=== PATIENT | female | born 1975 | race Asian ===

== ENCOUNTER 2019-10-20 11:46 | Outpatient (CLI) | payer OTHER, SELFPAY ==
--- NOTE | 2019-10-20 11:55 | US_ITS ---
WS: [id number] PELVIC ULTRASOUND REASON FOR VISIT: MENORRHAGIA TECHNIQUE: Grayscale and Doppler transabdominal and transvaginal pelvic ultrasound. FINDINGS: A thickened endometrium measure 1.35 cm. Uterus measures 4.86 cm x 5.8 cm x 3.7 cm, right ovary measures 3.0 cm x 2.9 cm x 1.5 cm, and left ov jhonny measures 3.4 cm x 2.9 cm x 1.8 cm. The left ovary shows numerous prominent follicles. Normal blood flow is seen. A cyst is noted on the left measures 1.36 cm. The right ovary shows a cyst measures 0.83 cm. US/US pelvic with transvaginal IMPRESSION: Thickened endometrium suggests hyperplasia. Small functional cyst both ovaries.
== END 2019-10-20 11:47 | disposition home or self-care (01) ==
LOC: RAD 11:47
PROVIDERS: PCP Family Medicine; Visit Provider Family Medicine
DX: N92.0 Excessive and frequent menstruation with regular cycle (principal); N83.202 Unspecified ovarian cyst, left side; N83.201 Unspecified ovarian cyst, right side
CPT/HCPCS: 76830; 76856

== ENCOUNTER → 2019-11-17 09:58 | Outpatient (BNVA) | payer OTHER, SELFPAY | PROVIDERS: PCP Family Medicine; Visit Provider Nurse Practitioner Women's Health | DX: N93.9 Abnormal uterine and vaginal bleeding, unspecified (principal) | CPT/HCPCS: 88305 ==

== ENCOUNTER → 2021-06-20 11:42 | Outpatient (BNVA) | payer OTHER, SELFPAY | PROVIDERS: PCP Family Medicine; Visit Provider Specialist | DX: Z01.812 Encounter for preprocedural laboratory examination (principal); Z20.822 Contact with and (suspected) exposure to COVID-19 | CPT/HCPCS: 87635 ==

== ENCOUNTER 2021-06-26 06:39 | Outpatient (CLI) | payer OTHER, SELFPAY ==
--- NOTE | 2021-06-26 07:15 | PFTS_ITS ---
Date of Study:07/01/21 Date of Dictation: MECHANICS: Forced vital capacity (FVC) is normal. Forced expiratory volume in one second (FEV1) is normal. FEV1/FVC is normal. FLOW VOLUME LOOP: Normal. LUNG VOLUMES: Total lung capacity (TLC) is normal. Residual volume (RV) is decreased. DIFFUSING CAPACITY FOR CARBON MONOXIDE: Normal. INTERPRETATION: The postbronchodilator spirometry is normal. There is no significant postbronchodilator response. There is isolated mildly reduced residual volume likely nonspecific. The total lung capacity is normal. Gas exchange (DLCO) is normal. MTDD
== END 2021-06-26 06:40 | disposition home or self-care (01) ==
LOC: RT 06:41
PROVIDERS: PCP Family Medicine; Visit Provider Specialist
DX: J30.1 Allergic rhinitis due to pollen (principal)
CPT/HCPCS: 94060; 94726; 94729; J7611

== ENCOUNTER → 2021-11-20 08:58 | Outpatient (BNVA) | payer OTHER, SELFPAY | PROVIDERS: PCP Family Medicine; Visit Provider Family Medicine | DX: Z00.00 Encounter for general adult medical examination without abnormal findings (principal) | CPT/HCPCS: 80053; 80061 ==

== ENCOUNTER → 2022-06-08 12:58 | Outpatient (BNVA) | payer OTHER, SELFPAY | PROVIDERS: PCP Family Medicine; Visit Provider Family Medicine | DX: E78.5 Hyperlipidemia, unspecified (principal); M25.562 Pain in left knee | CPT/HCPCS: 80061 ==

== ENCOUNTER → 2022-12-10 15:32 | Outpatient (BNVA) | payer OTHER, SELFPAY | PROVIDERS: PCP Family Medicine; Visit Provider Family Medicine | DX: Z00.00 Encounter for general adult medical examination without abnormal findings (principal); Z78.9 Other specified health status | CPT/HCPCS: 87624 ==

== ENCOUNTER → 2022-12-11 08:31 | Outpatient (BNVA) | payer OTHER, SELFPAY | PROVIDERS: PCP Family Medicine; Visit Provider Family Medicine | DX: Z00.00 Encounter for general adult medical examination without abnormal findings (principal); E78.5 Hyperlipidemia, unspecified | CPT/HCPCS: 80053; 80061 ==

== ENCOUNTER 2023-01-01 14:52 | Outpatient (CLI) | payer OTHER, SELFPAY ==
--- NOTE | 2023-01-01 15:31 | MM_ITS ---
WS: [id number] BILATERAL 3D TOMOSYNTHESIS DIGITAL SCREENING MAMMOGRAPHY WITH CAD CLINICAL INFORMATION: SCREENING HISTORY: Screening mammogram. No current complaints. COMPARISON: Baseline TECHNIQUE: Bilateral CC and MLO views. FINDINGS: The breasts are composed of heterogeneous fibroglandular density tissue, which can limit the detectio n of small underlying mass lesions. No suspicious mass, asymmetry, calcifications, or architectural d istortion. No evidence of malignancy. IMPRESSION: MM/[place] [id number] BI-RADS: 1-Negative FOLLOW UP: 1 Year Follow-up Recommend return to annual screening mammography.
== END 2023-01-01 14:53 | disposition home or self-care (01) ==
PROVIDERS: PCP Family Medicine; Visit Provider Family Medicine
DX: Z12.31 Encounter for screening mammogram for malignant neoplasm of breast (principal)
CPT/HCPCS: 77063; 77067

== ENCOUNTER → 2023-04-14 07:55 | Outpatient (BNVA) | payer OTHER, SELFPAY | PROVIDERS: PCP Family Medicine; Visit Provider Clinical Nurse Specialist Adult Health | DX: J02.9 Acute pharyngitis, unspecified (principal) | CPT/HCPCS: 87880 ==

== ENCOUNTER → 2023-08-02 15:01 | Outpatient (BNVA) | payer OTHER, SELFPAY | PROVIDERS: PCP Family Medicine; Visit Provider Family Medicine | DX: R59.1 Generalized enlarged lymph nodes (principal) | CPT/HCPCS: 85025; 85651; 86140 ==

== ENCOUNTER → 2024-01-13 09:11 | Outpatient (BNVA) | payer OTHER, SELFPAY | PROVIDERS: PCP Family Medicine; Visit Provider Family Medicine | DX: Z00.00 Encounter for general adult medical examination without abnormal findings (principal); E78.5 Hyperlipidemia, unspecified | CPT/HCPCS: 80053; 80061; 84443 ==

== ENCOUNTER 2025-01-02 11:12 | Outpatient (CLI) | payer OTHER, SELFPAY ==
--- NOTE | 2025-01-02 11:20 | MM_ITS ---
WS: [id number] BILATERAL 3D TOMOSYNTHESIS DIGITAL SCREENING MAMMOGRAPHY WITH CAD CLINICAL INFORMATION: SCREENING HISTORY: Screening mammogram. No current complaints. COMPARISON: 2022 TECHNIQUE: Bilateral CC and MLO views. FINDINGS: The breasts are composed of heterogeneous fibroglandular density tissue, which can limit the detection of small underlying mass lesions. No suspicious mass, asymmetry, calcifications, or architectural distortion. No evidence of malignancy. MM/MM scr tomosynthesis [id number] IMPRESSION: DENSITY: The breasts are heterogeneously dense, which may obscure small masses. BI-RADS: 1 - Negative FOLLOW UP: 1 Year Follow-up Recommend return to annual screening mammography.
== END 2025-01-02 11:13 | disposition home or self-care (01) ==
LOC: MOBLMAM 11:12
PROVIDERS: PCP Family Medicine; Visit Provider Family Medicine
DX: Z12.31 Encounter for screening mammogram for malignant neoplasm of breast (principal); R92.333 Mammographic heterogeneous density, bilateral breasts
CPT/HCPCS: 77063; 77067

== ENCOUNTER → 2025-01-23 08:49 | Outpatient (BNVA) | payer OTHER, SELFPAY | PROVIDERS: PCP Family Medicine; Visit Provider Family Medicine | DX: E78.5 Hyperlipidemia, unspecified (principal); N92.0 Excessive and frequent menstruation with regular cycle; Z00.00 Encounter for general adult medical examination without abnormal findings | CPT/HCPCS: 80053; 80061; 85025 ==

== ENCOUNTER 2025-02-05 16:26 | Outpatient (CLI) | payer OTHER, SELFPAY ==
--- NOTE | 2025-02-05 17:00 | US_ITS ---
WS: [id number] US pelvic complete* [id number] HISTORY: pelvic pain and menorrhagia COMPARISON: 10/20/2019 Uterus: 10.9 cm x 7.2 cm x 4.8 cm. Normal size uterus. Suspect a small fibroid measuring 2.7 x 3.6 x 4.1 cm along the LEFT lateral uterus. Endometrium: 0.8 cm. Limited evaluation. Right ovary: 2.6 cm x 2.9 cm x 2.1 cm. Normal size and vascularity, no cystic or solid masses. Left ovary: 3.0 cm x 2.5 cm x 2.4 cm. Normal size and vascularity, no cystic or solid masses. No free fluid in the cul-de-sac. US/US pelvic complete* [id number] IMPRESSION: 1. Limited evaluation of the pelvic structures. 2. Patient refused transvaginal imaging. Strongly recommend follow-up transvag inal pelvic ultrasound due to history of menorrhagia. 3. Limited evaluation of the endometrium. 4. Possible LEFT uterine fibroid.
== END 2025-02-05 16:27 | disposition home or self-care (01) ==
PROVIDERS: PCP Family Medicine; Visit Provider Family Medicine
DX: N92.0 Excessive and frequent menstruation with regular cycle (principal)
CPT/HCPCS: 76856

== ENCOUNTER 2025-03-16 16:19 | Outpatient (CLI) | payer OTHER, SELFPAY ==
--- NOTE | 2025-03-16 17:00 | US_ITS ---
WS: [id number] US transvaginal [id number] HISTORY: menorrhagia COMPARISON: 02/05/2025 Uterus: 9.2 cm x 6.0 cm x 3.8 cm. Uterus is retroverted. Uterus is measuring top normal size. Mild heterogeneity within the myometrium. No fibroid identified. Endometrium: 1.0 cm. Normal trilaminar appearance of the endometrium. No mass. Junctional zone is intact. Right ovary: 3.0 cm x 1.8 cm x 2.9 cm. Normal size and vascularity, no cystic or solid masses. Dominant follicle measures 2.6 x 2.4 x 2.7 cm. Left ovary: 2.6 cm x 2.6 cm x 1.4 cm. Normal size and vascularity, no cystic or solid masses. No free fluid in the cul-de-sac. US/US transvaginal [id number] IMPRESSION: 1. Retroverted uterus. No fibroids identified by transvaginal imaging. 2. Normal endometrium. No increased vascularity or mass.
== END 2025-03-16 16:20 | disposition home or self-care (01) ==
LOC: RAD 16:22
PROVIDERS: PCP Family Medicine; Visit Provider Family Medicine
DX: N92.0 Excessive and frequent menstruation with regular cycle (principal); N88.8 Other specified noninflammatory disorders of cervix uteri
CPT/HCPCS: 76830

== ENCOUNTER → 2025-05-01 08:50 | Outpatient (BNVA) | payer OTHER, SELFPAY | PROVIDERS: PCP Family Medicine; Visit Provider Family Medicine | DX: R07.9 Chest pain, unspecified (principal) | CPT/HCPCS: 80053; 84443; 85025; 86140 ==